=== PATIENT | male | born 1950 | race Caucasian/White ===

== ENCOUNTER → 2017-11-05 | Outpatient (CLI) | payer MEDICARE ==
--- NOTE | 2017-11-05 09:19 | CTL ---
EXAMINATION TYPE: CT Low Dose Lung DATE OF EXAM ORDERED: 11/05/2017 HISTORY: Personal history tobacco use. Lung cancer screening CT DLP: [address]DI: 2.49 mGy Automated exposure control for dose reduction was used. SCREENING VISIT: 1 COMPARISON: None TECHNIQUE: Low dose computed tomography scan was performed through the chest at 1 mm thick sections and reconstructed images in the coronal plane at [address] DIAGNOSTIC QUALITY: Satisfactory FINDINGS: LUNG NODULES: Present, detailed below: Right lung: Soft tissue Nodule, Size in Millimeters 5 mm was visualized with Nodule Type: Solid that is Nodule state: New in nature on image # CT Image slide number 168. Subpleural suspected calcified nodule on image 105 measures only 2 mm. LUNGS: COPD: Severity: Moderate emphysema Fibrosis: Severity: None Lymph nodes: Nonenlarged Other findings: RIGHT PLEURAL SPACE: Effusion: None Calcification: As above Thickening: None Pneumothorax: None LEFT PLEURAL SPACE: Effusion: None Calcification: None Thickening: None Pneumothorax: None HEART: Heart Size: Normal Coronary calcification: Moderate Pericardial effusion: None OTHER FINDINGS: Upper abdomen: Unremarkable Bony thorax: Within normal limits Supraclavicular region: No adenopathy IMPRESSION: Positive exam for subpleural soft tissue nodule, probably benign, rescreen in [address] CHEST RECOMMENDATION: CT LUNG RAD: 3 MTDD
== END | disposition home or self-care (01) ==
LOC: RADCTMAIN 07:19
PROVIDERS: ATTEND Family Medicine
DX: J94.8 Other specified pleural conditions (principal); Z87.891 Personal history of nicotine dependence

== ENCOUNTER 2018-04-12 10:58 | Day surgery (SDC) | payer MEDICARE ==
[2018-04-10 15:35] VITALS: BMI 28.4
[~2018-04-12 10:58] MED LIST: LACTATED RINGERS 1,000 ML IV SCH
[2018-04-12 11:43] VITALS: RESP 16; TEMP 97.6
[2018-04-12] MEDS ORDERED: GLYCOPYRROLATE 0.2 MG/ML 2 ML VIAL ONE (13:05)
[2018-04-12] MEDS ORDERED: PROPOFOL 10 MG/ML 20 ML VIAL IV ONE (13:05)
--- NOTE | 2018-04-12 13:21 | P.PCN ---
Date of Procedure: 04/12/18 Procedure(s) Performed: BRIEF HISTORY: Patient is a 67-year-old pleasant white male, scheduled for an elective colonoscopy as a part of evaluation of prior history of colon polyps. Last coloscopy was 5 years ago. PROCEDURE PERFORMED: Colonoscopy with snare polypectomy. PREOPERATIVE DIAGNOSIS: History of colon polyps. IV sedation per Anesthesia. PROCEDURE: After informed consent was obtained, the patient, was brought into the endoscopy unit. IV sedation was administered by Anesthesia under continuous monitoring. Digital rectal examination was normal. Initially the Olympus CF- 160 flexible video colonoscope was then inserted in the rectum, gradually advanced into the cecum without any difficulty. Careful examination was performed as the scope was gradually being withdrawn. Ileocecal valve and the appendiceal orifice were visualized and appeared normal. Prep was excellent. Mucosa of the cecum, appeared normal. In the ascending colon there was a 7 mm flat polyp removed by snare polypectomy. Rest of the ascending colon, transverse colon, descending colon, sigmoid colon, and rectum appeared normal. Retroflexion was performed in the rectum and no lesions were seen. Proximal rectum there was a 2-3 mm sessile polyp removed by snare polypectomy. The patient tolerated the procedure well. IMPRESSION: 7 mm flat ascending colon polyp status post polypectomy 2- 3 mm proximal rectal polyp status post polypectomy RECOMMENDATIONS: Findings of this examination were discussed with the patient is well as his family.. He was advised to follow with the biopsy results. If the biopsy shows adenoma, he can have a repeat colonoscopy in 5 years
[2018-04-12 14:01] VITALS: BP 132/80; PULSE 66
== END 2018-04-12 14:02 | disposition home or self-care (01) ==
LOC: ORWHC2ENDO 10:58
PROVIDERS: ATTEND Internal Medicine Gastroenterology
DX: Z12.11 Encounter for screening for malignant neoplasm of colon (principal); D12.2 Benign neoplasm of ascending colon; K62.1 Rectal polyp; Z86.010 Personal history of colon polyps; E78.5 Hyperlipidemia, unspecified; J44.9 Chronic obstructive pulmonary disease, unspecified; K21.9 Gastro-esophageal reflux disease without esophagitis; F17.200 Nicotine dependence, unspecified, uncomplicated; Z79.82 Long term (current) use of aspirin; Z79.899 Other long term (current) drug therapy
CPT/HCPCS: 88305; 45385; J2704

== ENCOUNTER → 2019-03-21 | Outpatient (CLI) | payer MEDICARE ==
--- NOTE | 2019-03-21 08:31 | CTL ---
EXAMINATION TYPE: CT Low Dose Lung DATE OF EXAM ORDERED: 03/21/2019 COMPARISON: November 05, 2017 HISTORY: . Low Dose CT Lung Screening CT DLP: 272.[address] CTDI: 7.8 mGy IV CONTRAST USED: None. SCREENING VISIT: First visit COMPARISON: None. TECHNIQUE: Low dose computed tomography scan was performed through the chest at 1 millimeter thick se ctions and reconstructed images in the coronal plane at [address] DIAGNOSTIC QUALITY: Satisfactory FINDINGS: Right lung: Stable pleural-based solid nodule right middle lobe measuring 5 mm image 159. Left lun mm left lower lobe solid pulmonary nodule image 202 with an additional left lower lobe s olid nodule measuring 3.4 mm image 13. All nodules are stable. LUNGS: COPD: Severity: Mild Fibrosis: Severity:None Lymph nodes: None Other findings: None RIGHT PLEURAL SPACE: Effusion: None Calcification: None Thickening: None Pneumothorax: None LEFT PLEURAL SPACE: Effusion: None Calcification: None Thickening: None Pneumothorax: None HEART: Heart Size: Mildly enlarged Coronary calcification: Mild Pericardial effusion: None OTHER FINDINGS: Upper abdomen: No significant abnormality Bony thorax: Degenerative changes Supraclavicular region: No significant abnormalityOther: No significant abnormalityI IMPRESSION: 1. Stable pulmonary nodularity. FOLLOW UP CT CHEST RECOMMENDATION: Follow-up screening in one year smoking cessation recommended. CT LUNG RAD: Benign appearance or behavior category 2
== END | disposition home or self-care (01) ==
LOC: RADCTMAIN 07:44
PROVIDERS: ATTEND Family Medicine
DX: Z12.2 Encounter for screening for malignant neoplasm of respiratory organs (principal); R91.1 Solitary pulmonary nodule; F17.210 Nicotine dependence, cigarettes, uncomplicated

== ENCOUNTER → 2020-04-05 | Outpatient (CLI) | payer MEDICARE ==
--- NOTE | 2020-04-05 18:26 | CT ---
EXAMINATION TYPE: CT abdomen pelvis w con DATE OF EXAM: 04/05/2020 COMPARISON: None INDICATION: RLQ and hip pain [id number] DLP: 1056.1 mGycm, Automated exposure control for dose reduction was used. CONTRAST: 100 mL of Isovue 300. Study performed with Oral Contrast TECHNIQUE: Axial images were obtained from above the diaphragm to the pubic rami in the axial plane a t 5 mm thick sections. Reconstructed images are reviewed on the computer in the coronal plane. FINDINGS: Limited CT sections are obtained the lung bases. The lung bases are clear. CT ABDOMEN: Liver: Normal Spleen: Normal Pancreas: Normal Adrenal glands: The adrenal glands are normal. Gallbladder: Normal Kidneys: No masses are evident. No hydronephrosis is present. T0here is a 3.7 cm cyst on the latera l left kidney measuring 10 Hounsfield units. A small superior left apical cyst is present measuring 2 .2 cm and 5 Hounsfield units. Delayed images were obtained through the kidneys, which remain unremar kable. Aorta: Vascular calcification is within the aorta. Inferior vena cava: Normal. CT PELVIS: Loops of bowel within the abdomen and pelvis are normal. Fecal debris is within the colon. There a re loops of bowel which are incompletely distended or lack oral contrast limiting their evaluation. Appendix: Normal as visualized. Urinary bladder: Normal. Genitourinary structures: Prostate has mild prominence Osseous structures: No suspicious lytic or sclerotic lesions. Degenerative disc changes are present L 4-5 L5-S1. There is narrowing of the bilateral hip joint space is compatible some osteoarthritic dege nerative change. No acute osseous abnormality is evident. IMPRESSIONS: 1. Left renal cysts. 2. Normal appendix. 3. Mild osteoarthritic degenerative change bilateral hips
== END | disposition home or self-care (01) ==
LOC: RADCTMAIN 12:22
PROVIDERS: ATTEND Family Medicine
DX: N28.1 Cyst of kidney, acquired (principal); M16.0 Bilateral primary osteoarthritis of hip; R10.9 Unspecified abdominal pain
CPT/HCPCS: 82565; 84520; 74177; 36415; Q9967

== ENCOUNTER → 2022-11-03 | Outpatient (CLI) | payer MEDICARE ==
--- NOTE | 2022-11-03 12:33 | CTL ---
EXAMINATION TYPE: CT Low Dose Lung DATE OF EXAM ORDERED: 11/03/2022 HISTORY: Personal history of nicotine dependence. Lung cancer screening CT DLP: 82.[address] CTDI: 2.4 mGy Automated exposure control for dose reduction was used. SCREENING VISIT: Subsequent COMPARISON: 03/21/2019 TECHNIQUE: Low dose computed tomography scan was performed through the chest at 1 mm thick sections a nd reconstructed images in the coronal plane at [address] DIAGNOSTIC QUALITY: Satisfactory FINDINGS: LUNG NODULES: None. LUNGS: COPD: Severity: Moderate Fibrosis: Severity: None Lymph nodes: None Other findings: None RIGHT PLEURAL SPACE: Effusion: None Calcification: None Thickening: None Pneumothorax: None LEFT PLEURAL SPACE: Effusion: None Calcification: None Thickening: None Pneumothorax: None HEART: Heart Size: Normal Coronary calcification: Mild Pericardial effusion: None OTHER FINDINGS: Upper abdomen: Normal Bony thorax: Normal Supraclavicular region: Normal Other: Ascending thoracic aorta at the level the main pulmonary artery measures 3.1 cm. The main pul monary artery at the bifurcation measures 3.1 cm. IMPRESSION: 1. No suspicious changes to suggest primary or metastatic neoplasm FOLLOW UP CT CHEST RECOMMENDATION: Follow-up low-dose CT chest [address] LUNG RAD: Lung-Rad 2 Benign Appearance or Behavior
== END | disposition home or self-care (01) ==
LOC: RADCTMAIN 08:00
PROVIDERS: ATTEND Family Medicine
DX: Z12.2 Encounter for screening for malignant neoplasm of respiratory organs (principal); Z87.891 Personal history of nicotine dependence
CPT/HCPCS: 71271

== ENCOUNTER 2022-12-15 09:42 | Day surgery (SDC) | payer MEDICARE ==
[2022-12-15 10:25] VITALS: RESP 16; TEMP 97.4
[2022-12-15 10:25] LABS: Glucose,Whole Blood 87 mg/dL (70-110)
[2022-12-15] MEDS ORDERED: GLYCOPYRROLATE 0.2 MG/ML 2 ML VIAL ONE (11:14)
[2022-12-15] MEDS ORDERED: PROPOFOL 10 MG/ML 20 ML VIAL IV ONE (11:14)
--- NOTE | 2022-12-15 11:31 | P.PCN ---
Date of Procedure: 12/15/22 Procedure(s) Performed: BRIEF HISTORY: Patient is a 72-year-old pleasant white male scheduled for an elective colonoscopy as a part of evaluation of prior history of colon polyps. Last colonoscopy was 5 years ago. PROCEDURE PERFORMED: Colonoscopy with snare polypectomy. PREOPERATIVE DIAGNOSIS: History of colon polyps. IV sedation per Anesthesia. PROCEDURE: After informed consent was obtained, the patient, was brought into the endoscopy unit. IV sedation was administered by Anesthesia under continuous monitoring. Digital rectal examination was normal. Initially the Olympus CF-160 flexible video colonoscope was then inserted in the rectum, gradually advanced into the cecum without any difficulty. Careful examination was performed as the scope was gradually being withdrawn. Ileocecal valve and the appendiceal orifice were visualized and appeared normal. Prep was excellent. Mucosa of the cecum, ascending colon appeared normal. In the transverse colon there was a 7-8 mm polyp removed by cold snare polypectomy. In the descending colon there was a 1 cm flat polyp removed by snare polypectomy. In the sigmoid: There was another 1 cm polyp removed by hot snare polypectomy. Rest of the, transverse colon, descending colon, sigmoid colon, and rectum appeared normal. Retroflexion was performed in the rectum and no lesions were seen. The patient tolerated the procedure well. IMPRESSION: 7-8 mm transverse colon polyp status post cold snare polypectomy 1 cm flat descending colon polyp status post snare polypectomy 1 cm; sigmoid polyp status post polypectomy RECOMMENDATIONS: Findings of this examination were discussed with the patient as well as his family.. He was advised to follow with the biopsy results. If the biopsy results adenoma he can have a repeat colonoscopy in 3 years
[2022-12-15] MEDS ORDERED: IV FLUID CONTINUATION 1,000 ML IV ONE (11:33)
[2022-12-15 11:51] VITALS: BP 147/79; PULSE 70
== END 2022-12-15 12:06 | disposition home or self-care (01) ==
LOC: ORWHC2ENDO 09:42
PROVIDERS: ATTEND Internal Medicine Gastroenterology
DX: Z12.11 Encounter for screening for malignant neoplasm of colon (principal); D12.3 Benign neoplasm of transverse colon; D12.4 Benign neoplasm of descending colon; D12.5 Benign neoplasm of sigmoid colon; Z86.010 Personal history of colon polyps; E78.5 Hyperlipidemia, unspecified; J44.9 Chronic obstructive pulmonary disease, unspecified; K21.9 Gastro-esophageal reflux disease without esophagitis; Z87.891 Personal history of nicotine dependence; Z79.899 Other long term (current) drug therapy
CPT/HCPCS: 88305; 45385; J2704

== ENCOUNTER → 2024-03-14 | Outpatient (CLI) | payer MEDICARE ==
--- NOTE | 2024-03-14 22:25 | CTL ---
EXAMINATION TYPE: CT Low Dose Lung DATE OF EXAM ORDERED: 03/14/2024 HISTORY: History of tobacco use. Lung cancer screening CT DLP: 129.[address] CTDI: 3.5 mGy Automated exposure control for dose reduction was used. SCREENING VISIT: Subsequent COMPARISON: 11/03/2022 TECHNIQUE: Low dose computed tomography scan was performed through the chest at 1 mm thick sections a nd reconstructed images in the coronal plane at [address] DIAGNOSTIC QUALITY: Satisfactory FINDINGS: LUNG NODULES: Present, detailed below: 1. There is a 0.5 cm nodule superior segment left lower lobe lateral left lung. Series 4 image 187 2. Punctate pleural-based density lateral left lung base. Series 129. 3. 0.6 cm nodule posterior right lung base. Series 4 image 229. This is new 4. There is a large nodule measuring 1.9 x 0.9 cm. Series 4 image 234. This is new 5. There is a 0.5 cm nodule lateral left lung. Series 4 image 198 LUNGS: COPD: Severity: Moderate Fibrosis: Severity: None Lymph nodes: None Other findings: None RIGHT PLEURAL SPACE: Effusion: None Calcification: None Thickening: None Pneumothorax: None LEFT PLEURAL SPACE: Effusion: None Calcification: None Thickening: None Pneumothorax: None HEART: Other: Ascending thoracic aorta at the level the main pulmonary artery measures 3.2 cm. The main pul monary artery at the bifurcation measures 3.0 cm. Heart Size: Normal Coronary calcification: Moderate Pericardial effusion: None OTHER FINDINGS: Upper abdomen: Normal Bony thorax: Normal Supraclavicular region: Normal IMPRESSION: 1. Two new large nodules posterior right lung base. Consider additional workup. 2. Stable small nodules left lung base FOLLOW UP CT CHEST RECOMMENDATION: Consider follow-up PET CT CT LUNG RAD: Lung-Rad 4A [facility], , 03/14/2024 10:22 PM
--- NOTE | 2024-03-15 20:11 | US ---
EXAMINATION TYPE: US Aorta Screening DATE OF EXAM: 03/14/2024 COMPARISON: CLINICAL INDICATION: Male, 73 years old with history of Z13.6 Screening for cardiovascular disorders; Z12.; HTN per patient. No hx AAA. TECHNIQUE: Multiple sonographic images of the abdominal aorta are obtained with grayscale and color D oppler imaging. with grayscale and color Doppler imaging FINDINGS: EXAM MEASUREMENTS: Abdominal Aorta: Proximal: 2.7 x 2.4 cm Mid: 2.4 x 1.9 cm Distal: 2.4 x 2.8 cm Bifurcation: Right Iliac: 0.9 x 1.0 cm Left Iliac: 1.1 x 1.0 cm ACCREDITED PHARMACY TECHNICIAN NOTES: Proximal and distal Aorta appears ectatic. Plaque seen. IMPRESSION: No evidence for aortic aneurysm. [facility], , 03/15/2024 8:09 PM
== END | disposition home or self-care (01) ==
LOC: RADUSWWP 07:59
PROVIDERS: ATTEND Family Medicine
DX: Z13.6 Encounter for screening for cardiovascular disorders (principal); Z12.2 Encounter for screening for malignant neoplasm of respiratory organs; F17.210 Nicotine dependence, cigarettes, uncomplicated; R91.8 Other nonspecific abnormal finding of lung field
CPT/HCPCS: 71271; 76706

== ENCOUNTER → 2024-04-17 | Outpatient (CLI) | payer MEDICARE ==
--- NOTE | 2024-04-21 11:29 | PE ---
EXAMINATION TYPE: PET CT fusion skull to thigh DATE OF EXAM: 04/17/2024 CLINICAL INDICATION:Male, 73 years old with history of R91.8 ABN FINDING IN LUNG FIELD; TECHNIQUE: Following the intravenous administration of 13.23 mCi of F-18 FDG, whole body images are performed from the skull base to the midthigh. Images are reviewed on the computer in the coronal, axial, and sagittal planes. Reconstructed rotating images are created on independent workstation and reviewed on the computer. A non-contrast CT is performed in conjunction with the PET scan. Glucose level 101 mg/dL CT DLP: 572.66 mGycm, Automated exposure control for dose reduction was used. COMPARISON: CT 03/14/2024, PET/CT None, MRI: None FINDINGS: Mediastinal SUV mean is 2.16. Hepatic parenchyma SUV mean is 2.75. SKULL BASE AND NECK: CHEST, MEDIASTINUM, AND HILAR REGION: No suspicious radiotracer activity. Nodules in the right lung base are no longer visualized and likely represent infectious/inflammatory process. ABDOMEN AND PELVIS: MUSCULOSKELETAL STRUCTURES: OTHER CT: Atherosclerosis of the carotid bifurcations and intracranial vasculature. Coronary artery a therosclerosis. Left simple appearing renal cysts. Fat-containing umbilical hernia. Fat-containing le ft inguinal hernia. IMPRESSION: No suspicious radiotracer activity. Nodules in the right lung base are no longer visualized and likel y represent infectious/inflammatory process. [facility], , 04/21/2024 11:26 AM
== END | disposition home or self-care (01) ==
LOC: RADPETMAIN 06:59
PROVIDERS: ATTEND Family Medicine
DX: R91.8 Other nonspecific abnormal finding of lung field (principal)
CPT/HCPCS: 78815; A9552

== ENCOUNTER → 2024-05-10 | Outpatient (CLI) | payer MEDICARE ==
--- NOTE | 2024-05-10 09:37 | MR ---
EXAMINATION TYPE: MR Prostate wo/w con DATE OF EXAM: 05/10/2024 COMPARISON: PET/CT April 17, 2024. INDICATION: elevated PSA PSA: 4.6 ng/ml on March 31, 2024 Recent Biopsy and Date: none Pathology Report (If Applicable): n/a TECHNIQUE: Examination was performed using a 3T MRI without an endorectal coil. Multiparametric imaging was perf ormed with T2 mutliplanar sequences, axial diffusion weighted imaging and dynamic contrast enhanced i maging, utilizing 8.5 mL intravenous Gadobutrol gadolinium contrast. FINDINGS: Slightly suboptimal study with artifact noted posterior prostate gland on DWI and ADC imagi ng. Prostate gland is normal in size. No areas of significant diminished signal on ADC mapping. No ar eas of suspicious increased signal on diffusion-weighted imaging. Heterogeneous transitional zone wit hout suspicious T2 hypointense area. PROSTATE VOLUME: 3.4 cm SI x 2.9 cm AP x 4.5 cm LR Vol= 23.2 cc PSA DENSITY: 0.20 ng/ml/cc No abnormal wall thickening or trabeculation in the bladder. IMPRESSION: Suboptimal study. Normal size prostate. A focus of clinically significant cancer is not clearly identified. Consider imaging guided random bi opsy to further evaluate especially if the PSA continues to rise. Highest Assessment Category: 1-2 MRI Stage: T0 N0 M0 based on review of pelvic images. False negative rates for MRI range from 5-20% depending on risk profile. Assessment Categories: 1 ? Very low (clinically significant cancer is highly unlikely to be present) 2 ? Low (clinically significant cancer is unlikely to be present) 3 ? Intermediate (the presence of clinically significant cancer is equivocal) 4 ? High (clinically significant cancer is likely to be present) 5 ? Very high (clinically significant cancer is highly likely to be present) Locations: PZ = peripheral zone; TZ = transition zone CZ=central zone; AFS = anterior fibromuscular stroma a=anterior half (i.e. PZa=anterior half of peripheral zone); pm= posterior medial (i.e PZpm) pl = postero-lateral (i.e. PZpl); p = posterior half (i.e. TZp) ; a = anterior half (i.e TZa or P Za) Other: N=no or no; E= equivocal; Y=yes EPE = extraprostatic extension NVB = neurovascular bundle NA = not applicable/not available [facility], , 05/10/2024 9:35 AM
== END | disposition home or self-care (01) ==
LOC: RADMRIMAIN 07:44
PROVIDERS: ATTEND Urology
DX: R97.20 Elevated prostate specific antigen [PSA] (principal)
CPT/HCPCS: 72197; A9585